=== PATIENT | female | born 1990 | race Caucasian/White ===

== ENCOUNTER 2024-02-16 21:41 | Emergency (ER) | payer OTHER, SELFPAY ==
[2024-02-16 21:43] VITALS: BP 134/72
--- NOTE | 2024-02-16 23:35 | ED.MUSCINJ ---
HPI-Injury
<AC Salinas - Last Filed: 02/17/24 05:13>
General
Chief Complaint: Fall
Source: patient and family
Exam Limitations: none
Time Seen by Provider: 02/16/24 23:15
Nursing documentation reviewed up to this point in time: agreed with
History of Present Illness-Injury
Is this injury a work related problem?: Yes
Is pt an associate of [facility]?: No
Initial Injury comments:
Patient is a 34 yo female who presents today after fall at work 2 days ago. She states floor at work was wet and her feet came out from under her. She fell on her R side but reached her L arm above & behind herself to try to catch herself during the
fall. She reports immediate pain in L shoulder. Notes L arm was shaking from after fall until sleeping that night. She states she cannot lift her L arm to shoulder height w/o pain radiating from down to elbow. She reports radiating pain from wrist
to elbow when making a fist. Reports pain w/ full extension of elbow. Reports weakness of arm w/ full elbow flexion. Reports arm is most comfortable in sling position. Reports she cannot drive or sleep on L side due to pain. States shoulder is
tender to the touch. Rates pain 9/10 w/ movement. States pain has been worsening since fall. Reports high pain tolerance. Denies hx of shoulder/arm injuries but notes shoulder has always popped.
Past History
<AC Salinas - Last Filed: 02/17/24 05:13>
Past History
ED Past Medical History: Asthma, Other (migraines) and Other (siezures)
Social History
Tobacco: Smoker
Review of Systems
<AC Salinas - Last Filed: 02/17/24 05:13>
Review of Systems
Allergies reviewed?: Yes
Other source history: family
All Other Systems: ROS reviewed and negative except as documented in HPI and ROS
Constitutional: Reports no symptoms
EENT: Reports no symptoms
Respiratory: Reports no symptoms
Cardiac: Reports no symptoms
ABD/GI: Reports no symptoms
: Reports no symptoms
Musculoskeletal: Reports joint pain
Skin: Reports no symptoms
Phy Exam
<ST BradSC - Last Filed: 02/17/24 05:13>
General Physical Exam
General Presentation: well appearing (holding arm in sling position )
General age: appears stated age
General Skin: warm
General Habitus: normal
General Mental: alert
ENT Exam
ENT Exam: normocephalic
Cardiovascular Exam
Cardiovascular Exam: regular rate/rhythm, no gallop and no murmur
Heart Sounds: normal
Pulmonary Exam
Pulmonary Exam: lungs clear, no respiratory distress, no rales, no crackles, no rhonchi and no wheezing
Musculoskeletal Exam
Musculoskeletal Exam: no edema and other (diffuse tenderness of L shoulder. More severe anterior. Decreased L arm ROM due to pain. Could not fully do rotator cuff special tests due to pain. Medial L elbow tenderness. )
Injury Course
<Regi Nolasco RUST - Last Filed: 02/17/24 05:13>
Orders/Labs/Results
Orders:
Orders
02/16/24 23:37
CR Chest - 2 Views Urgent
Comment:
Reason For Exam: fall
Humerus, Left 2 Views [CR Humerus - Left Min 2 Views*] Urgent
Comment:
Reason For Exam: fall
02/17/24 00:09
Sling Left-Treatment ONCE
<Darian Whitney DO - Last Filed: 02/17/24 00:15>
Orders/Labs/Results
Orders:
Orders
02/16/24 23:37
CR Chest - 2 Views Urgent
Comment:
Reason For Exam: fall
Humerus, Left 2 Views [CR Humerus - Left Min 2 Views*] Urgent
Comment:
Reason For Exam: fall
02/17/24 00:09
Sling Left-Treatment ONCE
<Darian Whitney DO - Last Filed: 02/17/24 00:15>
MDM/Problems Addressed
Differential Diagnosis Includes:
Shoulder sprain, elbow sprain, shoulder dislocation, elbow dislocation
Chronic conditions affecting care:
None
<AC Salinas - Last Filed: 02/17/24 05:13>
*Critical Care Note
Total Time (30-74mins, 75-104mins- exclusive of procedures): Not Applicable
ED Attending Note
<AC Salinas - Last Filed: 02/17/24 05:13>
-
Portions of this chart may have been created with voice recognition software.� Occasional wrong word or��sound alike� substitutions may have occurred due to the inherent limitations of voice recognition software.
<Darian Whitney DO - Last Filed: 02/17/24 00:15>
ED Attending Note
Patient seen and examined by attending physician: Yes
I performed the substantive portion of visit, reviewed & personally made and approve the management plan that is documented in note by myself or MARYCRUZ.: Yes
ED Attending Note:
Pleasant 34-year-old female presents with left arm pain. She fell at work 2 days ago. She has been able to move her wrist elbow and shoulder but states that she does have pain. Patient does have pain lifting her arm. She states that from her
elbow to her wrist she has radiation of pain when she tries to lift her shoulder. Patient was seen in conjunction with the PA student. I have reviewed and agree with the history and treatment plan presented. On my independent physical exam,
patient is awake, alert, and oriented x3. Good distal pulses left wrist. Limited range of motion secondary to pain.
X-rays of the chest and humerus were negative. Patient to be put into a sling and follow-up with orthopedics.
Discharge Plan
Departure
Patient Disposition: Home (Routine Discharge)
Date of Disposition: 02/17/24
Time of Disposition: 00:12
Patient with high blood pressure during this ER visit?: Yes
Condition: Good
Discharge Problem:
Internal derangement of left shoulder
Instructions: Rotator Cuff Injury (DC), How to Use a Shoulder Sling, BLOOD PRESSURE, Musculoskeletal Pain
Prescriptions:
New
diclofenac sodium 75 mg tablet,delayed release (DR/EC)
75 mg PO BID Qty: 10 0RF
Referrals:
Nathaniel Elias MD [Family Provider] -
Marcus Dukes MD [Active] - Call in 1-3 days for appt
Activity Restrictions/Additional Instructions:
Your prescriptions were sent to the pharmacy you specified.
It was a pleasure meeting you and taking part in your care. We hope for your continued healing and wellness.
Please read discharge instructions in their entirety. However, they are for general education and may not describe your exact diagnosis at discharge. Information on your ER visit and medical conditions were discussed with you along with appropriate
follow up information...
If indicated, please take your medications as instructed and indicated on discharge paperwork.
Please schedule a follow up appointment as directed. Call to schedule an appointment
Please return to the emergency department with ANY change in, persisting, or worsening of symptoms. If any of your symptoms do not improve, or persist, or become more severe within 6-12 hours, please return to the emergency department for further
care.
Please return to the emergency department if you develop a headache, neck pain/stiffness, fever greater than 100.4F, chest pain, shortness of breath, persistent nausea, vomiting, slurred speech, difficulty walking, numbness/tingling, weakness, signs
of infection or any other symptoms that are worrisome to you.
If you have any questions or concerns please do not hesitate to call the Hospital at or E-mail me directly at [email or web address]
Interventions
Interventions:
*Risk Screen - Suicide Last Done: 02/16/24 21:54
*General Assessment Last Done: 02/16/24 22:54
*Neglect/Abuse Screening Last Done: 02/17/24 00:19
*ED COVID-19 Vaccine History Last Done: 02/16/24 22:54
*Nursing Disposition Last Done: 02/17/24 00:19
ED-Musculoskeletal Assessment Last Done: 02/16/24 22:54
ED- Neurological Assessment Last Done: 02/16/24 22:54
ED-Skin Assessment Last Done: 02/16/24 22:54
Discharge Date and Time
Discharge Date/Time: 02/17/24 00:30
Print Language: MALAYSIAN
[2024-02-17 00:19] VITALS: BP 122/80
== END 2024-02-17 00:30 | disposition home or self-care (01) ==
LOC: EMR 21:41
PROVIDERS: EMERGENCY PHYSICIAN Student in an Organized Health Care Education/Training Program; FAMILY PHYSICIAN Family Medicine
DX: S49.92XA Unspecified injury of left shoulder and upper arm, initial encounter (principal); W01.0XXA Fall on same level from slipping, tripping and stumbling without subsequent striking against object, initial encounter; Y99.0 Civilian activity done for income or pay; F17.200 Nicotine dependence, unspecified, uncomplicated; J45.909 Unspecified asthma, uncomplicated
CPT/HCPCS: 99283; 71046; 73060